=== PATIENT | female | born 1940 | race Caucasian/White ===

== ENCOUNTER 2020-06-18 17:49 | Emergency (ER) | payer MEDICARE ==
[~2020-06-18 17:49] MED LIST: ANTIVERT 25MG T25 MG PO; NORCO 5-325 TA1 EACH PO; PRINIVIL5 MG PO
[2020-06-18 19:31] LABS: HEMOGLOBIN 12.6 gm/dl (12.3-15.3); RED BLOOD COUNT 4.23 M/UL (4.00-5.10); WHITE BLOOD COUNT 4.7 K/UL (4.5-11.0)
[2020-06-18 19:50] LABS: BUN/CREATININE RATIO 18 (0-10)
== END 2020-06-18 22:45 | disposition home or self-care (01) ==
LOC: ER1 17:49
PROVIDERS: Physician Assistant
DX: Z23 Encounter for immunization (principal); U07.1 COVID-19; I10 Essential (primary) hypertension; Z88.0 Allergy status to penicillin; Z88.8 Allergy status to other drugs, medicaments and biological substances
CPT/HCPCS: 71045; 80053; 82550; 82553; 83874; 84484; 85025; 93005; 99284; M0245; Q0245

== ENCOUNTER 2021-02-04 17:34 | Emergency (ER) | payer MEDICARE ==
[2021-02-04 19:37] LABS: HEMOGLOBIN 12.6 gm/dl (12.3-15.3); RED BLOOD COUNT 4.36 M/UL (4.00-5.10); WHITE BLOOD COUNT 5.4 K/UL (4.5-11.0)
[2021-02-05] MEDS ORDERED: BUSPIRONE HCL5 MG PO (00:41)
== END 2021-02-05 00:54 | disposition home or self-care (01) ==
LOC: ER1 17:34
PROVIDERS: Physician Assistant Medical
DX: R06.00 Dyspnea, unspecified (principal); I10 Essential (primary) hypertension; R07.9 Chest pain, unspecified; Z20.822 Contact with and (suspected) exposure to COVID-19; Z88.0 Allergy status to penicillin; Z79.82 Long term (current) use of aspirin
CPT/HCPCS: 36415; 71045; 80053; 82550; 82553; 83874; 84484; 85025; 93005; 99285; U0002